=== PATIENT | male | born 1995 | race Hispanic/Latino ===

== ENCOUNTER 2019-11-06 21:59 | Emergency (ER) | payer SELFPAY ==
[~2019-11-06] VITALS: Ht 162.6 cm; Wt 77.1 kg
[2019-11-06] MEDS ORDERED: HYDROCODONE/APAP 5MG-325MG TAB PO ONE (22:45)
[2019-11-06] MEDS ORDERED: TRAMADOL HCL 50 MG TAB PO STA (23:50)
[2019-11-06] MEDS ORDERED: TRAMADOL HCL 50 MG TAB ONE (23:54)
--- NOTE | 2019-11-07 00:33 | Diagnostic Imaging Report ---
X-ray right hand 3 views HISTORY: Pain. COMPARISON: None available. FINDINGS: Bones: No acute displaced fracture. Osseous alignment is within normal limits. Joints: The joint spaces are well-maintained. Soft tissues: The soft tissues appear unremarkable. IMPRESSION: No acute radiographic osseous abnormality. Signed by: Arya Multani DO on 11/07/2019 12:30 AM
== END 2019-11-07 00:50 | disposition home or self-care (01) ==
LOC: ER 21:59
DX: S67.21XA Crushing injury of right hand, initial encounter (principal); W23.1XXA Caught, crushed, jammed, or pinched between stationary objects, initial encounter; Y99.0 Civilian activity done for income or pay
CPT/HCPCS: 99283